=== PATIENT | female | born 1950 | race Two or more races ===

== ENCOUNTER → 2024-06-24 | Outpatient (CLI) | payer MEDICARE, MEDICAID, SELFPAY ==
[2024-06-24 11:53] LABS: Alanine Aminotransferase 17 U/L (10-49); Albumin/Globulin Ratio 1.4 (1.2-2.2); Alkaline Phosphatase 132 U/L (46-116); Anion Gap 7 (7-16); Aspartate Amino Transferase 17 U/L (0-34); BUN/Creatinine Ratio 26 Ratio (12-20); Bilirubin,Total 0.4 mg/dL (0.3-1.2); Blood Urea Nitrogen 23 mg/dL (9-23); Calcium 9.9 mg/dL (8.3-10.6); Calcium (Corrected) 9.9 mg/dL (8.5-10.1); Carbon Dioxide 31.7 mMol/L (20.0-31.0); Cardiac Risk Estimate 2.6 RATIO (3.7-5.6); Chloride 101 mMol/L (98-107); Cholesterol 135 mg/dL (132-200); Creatinine (Component) 0.9 mg/dL (0.6-1.3); Globulin 2.9 gm/dL (2.3-3.5); Glucose 180 mg/dL (74-106); HDL Cholesterol 52 mg/dL (40-60); LDL Cholesterol,Calculated 58 mg/dL (0-130); Osmolality,Calculated 288 (275-295); Potassium 4.6 mMol/L (3.4-5.1); Sodium 140 mMol/L (136-145); Total Protein 6.9 gm/dL (5.7-8.2); Triglycerides 126 mg/dL (30-150); eGFR > 60 See Note
[2024-06-24 12:12] LABS: Glucose Estimated Average 163 mg/dL (80-131); Hemoglobin A1C 7.3 % Hgb (4.8-6.0)
== END | disposition home or self-care (01) ==
LOC: COPL 09:23
PROVIDERS: PCP Family Medicine; Referring Provider Physician Assistant; Visit Provider Physician Assistant
DX: E78.5 Hyperlipidemia, unspecified (principal); I10 Essential (primary) hypertension; E11.9 Type 2 diabetes mellitus without complications
CPT/HCPCS: 36415; 80053; 80061; 83036

== ENCOUNTER → 2024-09-16 | Outpatient (CLI) | payer MEDICARE, MEDICAID, SELFPAY ==
[2024-09-16 09:46] LABS: Alanine Aminotransferase 21 U/L (10-49); Albumin, Serum 4.2 gm/dL (3.4-4.8); Albumin/Globulin Ratio 1.4 (1.2-2.2); Alkaline Phosphatase 144 U/L (46-116); Anion Gap 7 (7-16); Aspartate Amino Transferase 21 U/L (0-34); BUN/Creatinine Ratio 19 Ratio (12-20); Bilirubin,Total 0.5 mg/dL (0.3-1.2); Blood Urea Nitrogen 15 mg/dL (9-23); Carbon Dioxide 31.6 mMol/L (20.0-31.0); Cardiac Risk Estimate 3.8 RATIO (3.7-5.6); Chloride 103 mMol/L (98-107); Cholesterol 177 mg/dL (132-200); Creatinine (Component) 0.8 mg/dL (0.6-1.3); Globulin 3.1 gm/dL (2.3-3.5); Glucose 197 mg/dL (74-106); HDL Cholesterol 46 mg/dL (40-60); LDL Cholesterol,Calculated 100 mg/dL (0-130); Osmolality,Calculated 288 (275-295); Potassium 4.3 mMol/L (3.4-5.1); Sodium 142 mMol/L (136-145); Total Protein 7.3 gm/dL (5.7-8.2); Triglycerides 153 mg/dL (30-150); eGFR > 60 See Note
[2024-09-16 10:08] LABS: Glucose Estimated Average 197 mg/dL (80-131); Hemoglobin A1C 8.5 % Hgb (4.8-6.0)
== END | disposition home or self-care (01) ==
LOC: COPL 08:06
PROVIDERS: PCP Family Medicine; Referring Provider Physician Assistant; Visit Provider Physician Assistant
DX: E11.9 Type 2 diabetes mellitus without complications (principal); E78.5 Hyperlipidemia, unspecified; I10 Essential (primary) hypertension
CPT/HCPCS: 36415; 80053; 80061; 83036

== ENCOUNTER → 2024-12-04 | Outpatient (CLI) | payer MEDICARE, MEDICAID, SELFPAY ==
--- NOTE | 2024-12-04 11:30 | XR_ITS ---
Examination: Screening digital mammography, bilateral Computer aided detection 3-D breast Tomosynthesis, bilateral Date and time of exam: December 14, 2024 1129 hours Compared to mammograms dating to June 18, 2020 Indication: Screening Technique: Nonmagnified MLO, CC views of the breasts to been obtained, reconstructed from 3-D Tomosynthesis images. R2 computer aided detection program utilized for evaluation of suspicious masses and/or abnormal calcifications. 3-D Tomosynthesis images obtained. Findings: Scattered areas of fibroglandular density. Breast biopsy marker 12:00 position left breast and upper outer left breast Benign calcifications No interval suspicious masses Impression: BI-RADS category II: Benign Findings. Recommend 1 year follow-up mammogram.
== END | disposition home or self-care (01) ==
LOC: CDIM 11:13
PROVIDERS: Referring Provider Physician Assistant; Visit Provider Physician Assistant
DX: Z12.31 Encounter for screening mammogram for malignant neoplasm of breast (principal); R92.1 Mammographic calcification found on diagnostic imaging of breast; R92.323 Mammographic fibroglandular density, bilateral breasts
CPT/HCPCS: 77063; 77067

== ENCOUNTER → 2024-12-30 | Outpatient (CLI) | payer MEDICARE, MEDICAID, SELFPAY ==
[2024-12-30 10:43] LABS: Collection Type, Urine Clean Catch
[2024-12-30 11:15] LABS: Basophils # (Auto) 0.1 Thou/mm3 (0.0-0.2); Basophils % (Auto) 1 % (0-2.5); Eosinophils # (Auto) 0.1 Thou/mm3 (0.0-0.5); Eosinophils % (Auto) 1 % (0-10); Hematocrit 43.2 % (36.0-46.0); Hemoglobin 14.0 g/dL (12.0-16.0); Immature Granulocytes Auto 0.02 Thou/mm3 (0.00-0.00); Lymphocytes # (Auto) 2.6 Thou/mm3 (1.0-4.8); Lymphocytes % (Auto) 33 % (10-50); Mean Corpuscular HGB Conc 32.4 g/dl (31.0-37.0); Mean Corpuscular Hemoglobin 29.7 pg (25.0-35.0); Mean Corpuscular Volume 92 fL (80-100); Monocytes # (Auto) 0.5 Thou/mm3 (0.0-0.8); Monocytes % (Auto) 7 % (0-12); Neutrophils # (Auto) 4.6 Thou/mm3 (1.8-7.7); Neutrophils % (Auto) 59 % (37-80); Nucleated Red Blood Cell # 0.00 Thou/mm3 (0.00-0.00); Nucleated Red Blood Cell % 0 /100 WBC (0); Platelet Count 227 Thou/mm3 (140-440); RDW Standard Deviation 45.0 fL (36.4-46.3); Red Blood Count 4.71 Miln/mm3 (4.00-5.20); White Blood Count 7.9 Thou/mm3 (3.6-11.0)
[2024-12-30 11:26] LABS: Alanine Aminotransferase 19 U/L (10-49); Albumin, Serum 4.3 gm/dL (3.4-4.8); Albumin/Globulin Ratio 1.5 (1.2-2.2); Alkaline Phosphatase 135 U/L (46-116); Anion Gap 12 (7-16); Aspartate Amino Transferase 25 U/L (0-34); BUN/Creatinine Ratio 15 Ratio (12-20); Bilirubin,Total 0.5 mg/dL (0.3-1.2); Blood Urea Nitrogen 12 mg/dL (9-23); Calcium 9.8 mg/dL (8.3-10.6); Calcium (Corrected) 9.8 mg/dL (8.5-10.1); Carbon Dioxide 27.6 mMol/L (20.0-31.0); Cardiac Risk Estimate 2.9 RATIO (3.7-5.6); Chloride 103 mMol/L (98-107); Cholesterol 132 mg/dL (132-200); Creatinine (Component) 0.8 mg/dL (0.6-1.3); Globulin 2.8 gm/dL (2.3-3.5); Glucose 162 mg/dL (74-106); HDL Cholesterol 46 mg/dL (40-60); LDL Cholesterol,Calculated 62 mg/dL (0-130); Osmolality,Calculated 288 (275-295); Potassium 3.8 mMol/L (3.4-5.1); Sodium 143 mMol/L (136-145); Thyroid Stimulating Hormone 2.01 uIU/mL (0.55-4.78); Total Protein 7.1 gm/dL (5.7-8.2); Triglycerides 118 mg/dL (30-150); eGFR > 60 See Note
[2024-12-30 11:46] LABS: Bacteria,Urine Rare; Bilirubin,Urine Negative (Negative); Blood,Urine Negative (Negative); Budding Yeast,Urine Present; Clarity,Urine Clear (Clear/Hazy); Color,Urine Lt-Yellow (Lt Yel-Yel); Culture Indicated,Urine Not Indicated; Glucose, Urine 4+ (Negative); Ketones,Urine 1+ (Negative); Leukocyte Esterase,Urine Negative (Negative); Nitrite,Urine Negative (Negative); PH,Urine 5.5 (5.0-7.0); Protein,Urine Negative (Neg - Trace); RBC,Urine 2 /hpf (0-3); Specific Gravity,Urine 1.034 (1.001-1.035); Squamous Epithelial Cell,Urine 4 /hpf (0-5); Transitional Epi Cells,Urine < 1 /hpf (0-5); Urobilinogen,Urine Negative mg/dL (0.0-1.0); WBC,Urine 3 /hpf (0-5)
[2024-12-30 11:51] LABS: Creatinine MALB Rnd Ur 58 mg/dL (30-125); Microalbumin Creat Ratio 10 mg/gCrea (<30); Microalbumin, Random Urine 6 mg/L (0-300)
[2024-12-30 11:57] LABS: Glucose Estimated Average 177 mg/dL (80-131); Hemoglobin A1C 7.8 % Hgb (4.8-6.0)
[2024-12-30 11:59] LABS: Vitamin B12 718 pg/mL (211-911); Vitamin D 25 Hydroxy Total 36.8 ng/mL (7.3-40.2)
[2025-01-03 06:30] LABS: Fecal Globin Result NOT DETECTED (NOT DETECTED)
== END | disposition home or self-care (01) ==
LOC: COPL 09:47
PROVIDERS: PCP Physician Assistant; Referring Provider Physician Assistant; Visit Provider Physician Assistant
DX: Z00.00 Encounter for general adult medical examination without abnormal findings (principal); I10 Essential (primary) hypertension; E11.65 Type 2 diabetes mellitus with hyperglycemia; E55.9 Vitamin D deficiency, unspecified
CPT/HCPCS: 36415; 80053; 80061; 81001; 82043; 82274; 82306; 82570; 82607; 83036; 84443; 85025; G0328

== ENCOUNTER 2025-01-06 09:25 | Outpatient (AMB) | payer MEDICARE, SELFPAY ==
--- NOTE | 2025-01-06 09:47 | GYNCLNT_ITS ---
Vital Signs 01/06/25 09:48 Height 1.57 m Height Method Stated Weight 83.971 kg Weight Measurement Method Standing Scale BMI 33.8 BP 156/72 H Blood Pressure Source Automatic Cuff Blood Pressure Location Right Upper Arm Position Sitting Respiration 17 Pulse 80 Pulse Source Monitor Temp 97.4 F Temp Source Temporal Artery Scan Pulse Oximetry (%) 94 L Oxygen Delivery Method Room Air Allergies/Home Meds Allergies & Medications Allergies No Known Allergies Allergy (Verified 01/06/25 09:49) Medication Reconciliation liraglutide 0.6 mg/0.1 mL (18 mg/3 mL) subcutaneous pen injector (Victoza 3-Adiel) 1.8 mg subcut QDAY 03/04/21 [History Confirmed 01/06/25] empagliflozin 10 mg tablet (Jardiance) 10 mg PO QDAY 11/28/22 [History Confirmed 01/06/25] Held on 01/13/24. Instructions: Resume on 02/16/24. F/up with PCP to check for restart date. hydrochlorothiazide 25 mg tablet 25 mg PO QDAY 11/28/22 [History Confirmed 01/06/25] metformin 1,000 mg tablet 1,000 mg PO BID 11/28/22 [History Confirmed 01/06/25] atorvastatin 80 mg tablet 80 mg PO QPM #30 tabs 11/30/22 [Rx Confirmed 01/06/25] amlodipine 2.5 mg tablet 2.5 mg PO QDAY 01/11/24 [History Confirmed 01/06/25] clopidogrel 75 mg tablet 75 mg PO QDAY 01/11/24 [History Confirmed 01/06/25] duloxetine 30 mg capsule,delayed release 30 mg PO QDAY 01/11/24 [History Confirmed 01/06/25] insulin aspart U-100 100 unit/mL (3 mL) subcutaneous pen (Novolog FlexPen U-100 Insulin aspart) 20 unit subcut BID 01/11/24 [History Confirmed 01/06/25] losartan 100 mg tablet 100 mg PO QDAY 01/11/24 [History Confirmed 01/06/25] Intake Visit Data Collection New Patient or Established: Established Patient (seen at [facility] within 3 years) Reason for Visit:: REFERRAL Seen by Clinical Staff ONLY (RN/MA): No Encyclopedia Research Worker Required: No Do You Feel Safe at Home: Yes Authorities Contacted: N/A PCP or OBGYN visit in last 3 months: No Hx Now: No Are you currently on any form of Control: No Pain Present Currently: No Pain Scale Used: Pillai-Garcia/Numerical Pain scale:: 0 Smoking Status Smoking Status: Never smoker 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 1. Little interest or pleasure in doing things: not at all 2. Feeling down, depressed, or hopeless: not at all Total score: 0 PHQ-9 3. Trouble falling or staying asleep, or sleeping too much: Not at all 4. Feeling tired or having little energy: Not at all 5. Poor appetite or overeating: Not at all 6. Feeling bad about yourself - or that you are a failure or have let yourself or your family down: Not at all 7. Trouble concentrating on things, such as reading the newspaper or watching television: Not at all 8. Moving or speaking so slowly that other people could have noticed? - Or the opposite - being so fidgety or restless that you have been moving around a lot more than usual: not at all 9. Thoughts that you would be better off or of hurting yourself in some way: Not at all Total score: 0 If you checked off any problems, how difficult have these problems made it for you to do your work, take care of things at home, or get along with other people?: not difficult at all Source: Developed by Drs. Mark Burger, Mckenzie Flanagan, Wilbert Canseco and colleagues, with an educational naya from [employer]. Depression screen completed yes Social History Living Situation History Marital Status: Lives With: Family Housing: House Tobacco History Smoking Status: Never smoker Second Hand Smoke Exposure: No Alcohol History Alcohol Intake: Never Domestic Abuse History Do You Feel Safe at Home: Yes Office Procedures OB Clinic LOC & Office Proc's Nursing/Assessment Patient Status: Established Patient OB Clinic Nursing Assessment: Medication Reconciliation, Update PMH in EMR and Vital Signs OB Clinic Coordination of Care: Complex Care and Chronic Disease 1-5, Consent,records obtained, informed consent, Education Simp Pt/Fam, Lab and Imaging orders and Staff clarify orders Established Patient Charge Established Patient Point Assignment: 100 Established Patient Point Charge: EP Level 3 (80-115) Assessment & Plan Diagnosis / Problem List (1) Mass of left ovary: Status: Acute
[2025-01-06 09:48] VITALS: BP 156/72; PULSE 80; RESP 17; TEMP 36.3; O2SAT 94; BMI 33.8
== END 2025-01-06 10:23 | disposition home or self-care (01) ==
PROVIDERS: Supervising Provider Obstetrics & Gynecology; Visit Provider Obstetrics & Gynecology
DX: N83.8 Other noninflammatory disorders of ovary, fallopian tube and broad ligament (principal); E11.9 Type 2 diabetes mellitus without complications; I10 Essential (primary) hypertension; Z79.4 Long term (current) use of insulin; Z79.84 Long term (current) use of oral hypoglycemic drugs; Z79.85 Long-term (current) use of injectable non-insulin antidiabetic drugs; Z79.02 Long term (current) use of antithrombotics/antiplatelets; Z79.899 Other long term (current) drug therapy
CPT/HCPCS: 99213; G0463

== ENCOUNTER → 2025-01-23 | Outpatient (CLI) | payer MEDICARE, SELFPAY ==
--- NOTE | 2025-01-23 13:40 | XR_ITS ---
Examination: Lumbar spine, 5 views Technique: Lumbar spine AP, lateral, coned lateral lower lumbar spine, bilateral obliques 5 views Exam date and time: January 23, 2025 1514 hours INDICATIONS: Low back pain beginning 2 years ago FINDINGS: Adequate alignment lumbar vertebral bodies on the lateral view Mineralization of the anterior longitudinal ligament Moderate lumbar spondylosis No lumbar fracture. No significant lumbar disc narrowing No spondylolisthesis L5 films demonstrate diffuse advanced facet arthropathy IMPRESSION: No lumbar fracture Diffuse advanced facet arthropathy Moderate lumbar spondylosis No significant lumbar disc narrowing
[2025-01-23 14:35] LABS: Alanine Aminotransferase 17 U/L (10-49); Albumin, Serum 4.2 gm/dL (3.4-4.8); Albumin/Globulin Ratio 1.6 (1.2-2.2); Alkaline Phosphatase 145 U/L (46-116); Anion Gap 9 (7-16); Aspartate Amino Transferase 17 U/L (0-34); BUN/Creatinine Ratio 23 Ratio (12-20); Bilirubin,Total 0.5 mg/dL (0.3-1.2); Blood Urea Nitrogen 18 mg/dL (9-23); Calcium 10.5 mg/dL (8.3-10.6); Calcium (Corrected) 10.5 mg/dL (8.5-10.1); Carbon Dioxide 31.3 mMol/L (20.0-31.0); Chloride 103 mMol/L (98-107); Creatinine (Component) 0.8 mg/dL (0.6-1.3); Globulin 2.7 gm/dL (2.3-3.5); Glucose 160 mg/dL (74-106); Osmolality,Calculated 289 (275-295); Potassium 4.0 mMol/L (3.4-5.1); Sodium 143 mMol/L (136-145); Total Protein 6.9 gm/dL (5.7-8.2); eGFR > 60 See Note
[2025-01-23 14:52] LABS: CA 125 7.0 U/mL (<30.2)
== END | disposition home or self-care (01) ==
PROVIDERS: PCP Physician Assistant; Referring Provider Obstetrics & Gynecology; Visit Provider Obstetrics & Gynecology
DX: M47.896 Other spondylosis, lumbar region (principal); M47.816 Spondylosis without myelopathy or radiculopathy, lumbar region; N83.8 Other noninflammatory disorders of ovary, fallopian tube and broad ligament
CPT/HCPCS: 36415; 72110; 80053; 86304

== ENCOUNTER → 2025-02-18 | Outpatient (CLI) | payer MEDICARE, MEDICAID, SELFPAY ==
[2025-02-18 14:15] LABS: Alanine Aminotransferase 12 U/L (10-49); Albumin, Serum 4.2 gm/dL (3.4-4.8); Albumin/Globulin Ratio 1.5 (1.2-2.2); Alkaline Phosphatase 116 U/L (46-116); Anion Gap 9 (7-16); Aspartate Amino Transferase 17 U/L (0-34); BUN/Creatinine Ratio 14 Ratio (12-20); Bilirubin,Total 0.3 mg/dL (0.3-1.2); Blood Urea Nitrogen 11 mg/dL (9-23); Calcium 10.0 mg/dL (8.3-10.6); Calcium (Corrected) 10.0 mg/dL (8.5-10.1); Carbon Dioxide 31.2 mMol/L (20.0-31.0); Chloride 103 mMol/L (98-107); Creatinine (Component) 0.8 mg/dL (0.6-1.3); Globulin 2.8 gm/dL (2.3-3.5); Glucose 181 mg/dL (74-106); Osmolality,Calculated 289 (275-295); Potassium 3.9 mMol/L (3.4-5.1); Sodium 143 mMol/L (136-145); Total Protein 7.0 gm/dL (5.7-8.2); eGFR > 60 See Note
== END | disposition home or self-care (01) ==
LOC: COPL 12:25
PROVIDERS: PCP Family Medicine; Referring Provider Obstetrics & Gynecology; Visit Provider Obstetrics & Gynecology
DX: N83.8 Other noninflammatory disorders of ovary, fallopian tube and broad ligament (principal)
CPT/HCPCS: 36415; 80053

== ENCOUNTER → 2025-02-27 | Outpatient (CLI) | payer MEDICARE, MEDICAID, SELFPAY ==
--- NOTE | 2025-02-27 14:18 | XR_ITS ---
Examination: CT abdomen with intravenous contrast CT pelvis with intravenous contrast 2-D coronal reconstructions 2-D sagittal reconstructions Date and time of exam:February 27, 2025, 1520 hours, comparison January 14, 2024: History mild left hydronephrosis, pelvic sonogram January 14, 2024 no discrete pelvic mass, fat-containing left adnexal dermoid tumor 3.[address] pelvis January 12, 2024. CTDI: vol (mGy) 10.3 DLP: (mGycm) 578 Technique: Multiple axial sections of the abdomen and pelvis have been obtained. 64 slice high-resolution scanner used. 3 mm axial sections have been obtained, post intravenous injection 60 cc [id number] 2-D sagittal coronal reconstructions Low dose protocols, automated exposure control FINDINGS: There are no focal liver or splenic lesions Gallbladder not visualized No pancreatic mass No renal or ureteral calculi, no hydronephrosis Aorta normal size No pericecal inflammatory change No bowel obstruction No diverticulitis 35 x 32 mm fat-containing left ovarian mass No pelvic lymphadenopathy Atrophic uterus IMPRESSION: 35 x 32 mm fat-containing left ovarian mass, dermoid tumor
== END | disposition home or self-care (01) ==
PROVIDERS: PCP Physician Assistant; Referring Provider Obstetrics & Gynecology; Visit Provider Obstetrics & Gynecology
DX: N83.8 Other noninflammatory disorders of ovary, fallopian tube and broad ligament (principal)
CPT/HCPCS: 74177; A4649; Q9967

== ENCOUNTER 2025-03-20 14:44 | Outpatient (AMB) | payer MEDICARE, MEDICAID, SELFPAY ==
--- NOTE | 2025-03-20 14:55 | GYNCLNT_ITS ---
Vital Signs 03/20/25 14:55 Height 1.57 m Height Method Stated Allergies/Home Meds Allergies & Medications Allergies No Known Allergies Allergy (Verified 03/20/25 14:55) Medication Reconciliation liraglutide 0.6 mg/0.1 mL (18 mg/3 mL) subcutaneous pen injector (Victoza 3-Adiel) 1.8 mg subcut QDAY 03/04/21 [History Confirmed 03/20/25] empagliflozin 10 mg tablet (Jardiance) 10 mg PO QDAY 11/28/22 [History Confirmed 03/20/25] Held on 01/13/24. Instructions: Resume on 02/16/24. F/up with PCP to check for restart date. hydrochlorothiazide 25 mg tablet 25 mg PO QDAY 11/28/22 [History Confirmed 03/20/25] metformin 1,000 mg tablet 1,000 mg PO BID 11/28/22 [History Confirmed 03/20/25] atorvastatin 80 mg tablet 80 mg PO QPM #30 tabs 11/30/22 [Rx Confirmed 03/20/25] amlodipine 2.5 mg tablet 2.5 mg PO QDAY 01/11/24 [History Confirmed 03/20/25] clopidogrel 75 mg tablet 75 mg PO QDAY 01/11/24 [History Confirmed 03/20/25] duloxetine 30 mg capsule,delayed release 30 mg PO QDAY 01/11/24 [History Confirmed 03/20/25] insulin aspart U-100 100 unit/mL (3 mL) subcutaneous pen (Novolog FlexPen U-100 Insulin aspart) 20 unit subcut BID 01/11/24 [History Confirmed 03/20/25] losartan 100 mg tablet 100 mg PO QDAY 01/11/24 [History Confirmed 03/20/25] Intake Visit Data Collection New Patient or Established: Established Patient (seen at [facility] within 3 years) Reason for Visit:: DISCUSS CT SCAN AND LAB RESULTS Consent obtained for Telemed Visit: Yes Seen by Clinical Staff ONLY (RN/MA): No Buffing 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 Required: Yes Buffing Wheel Raker's name/title: HARMAN ESPARZA Do You Feel Safe at Home: Yes Authorities Contacted: N/A PCP or OBGYN visit in last 3 months: Yes Hx Now: No Are you currently on any form of Control: No Pain Present Currently: No Pain Scale Used: Pillai-Garcia/Numerical Pain scale:: 0 Smoking Status Smoking Status: Never smoker Immunizations Flu Vaccine in the Last 12 Months: Yes Date of most recent flu vaccination: 03/13/25 Flu Vaccine Exclusion Criteria: Already Received For Telemed visit only Telemed Video/Phone Visit: Yes Verbal consent obtained for Telemed visit?: Yes Verbal Consent witness name: HARMAN ESPARZA 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 Menopausal: Yes Currently sexually active: No If not currently sexually active, have you ever been sexually active: Yes 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 1. Little interest or pleasure in doing things: not at all 2. Feeling down, depressed, or hopeless: not at all Total score: 0 PHQ-9 3. Trouble falling or staying asleep, or sleeping too much: Not at all 4. Feeling tired or having little energy: Not at all 5. Poor appetite or overeating: Not at all 6. Feeling bad about yourself - or that you are a failure or have let yourself or your family down: Not at all 7. Trouble concentrating on things, such as reading the newspaper or watching television: Not at all 8. Moving or speaking so slowly that other people could have noticed? - Or the opposite - being so fidgety or restless that you have been moving around a lot more than usual: not at all 9. Thoughts that you would be better off or of hurting yourself in some way: Not at all Total score: 0 Source: Developed by Drs. Mark Burger, Mckenzie Flanagan, Wilbert Canseco and colleagues, with an educational naya from [employer]. Depression screen completed yes Social History Living Situation History Lives With: Family Housing: House Tobacco History Smoking Status: Never smoker Second Hand Smoke Exposure: No Alcohol History Alcohol Intake: Never Domestic Abuse History Do You Feel Safe at Home: Yes History of Present Illness HPI Narrative Vivienne Randolph is a 74-year-old postmenopausal female presenting for follow-up regarding an incidentally noted 4-centimeter dermoid cyst. The patient is being seen to review recent imaging and laboratory results related to this finding. 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 Exam General General Appearance: alert, in no apparent distress and healthy appearing Head Head exam: atraumatic Neck Neck exam: Present normal inspection and trachea midline Chest Chest inspection: Present normal inspection and symmetric chest wall rise External exam: Present normal external exam; Absent tenderness Neuro Neurological exam: Present oriented X3 Psych Psychiatric exam: Present normal affect and normal mood Office Procedures OBC Clinic LOC & Office Proc's Nursing/Assessment Patient Status: Established Patient OB Clinic Nursing Assessment: Medication Reconciliation and Update PMH in EMR OB Clinic Coordination of Care: Complex Care and Chronic Disease 1-5, Consent,records obtained, informed consent, Education Simp Pt/Fam, Results/Orders obtained and Staff clarify orders Established Patient Charge Established Patient Point Assignment: 75 Telehealth If patient is seen using Teleconference methods, complete New/Est section, but DO NOT karlo points only karlo the correct Telemed visit type Telemed Phone/Video with patient at home & Dr,PA,ARTIFICIAL 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 - CT scan shows the cyst is actually smaller than initially measured on ultrasound, which is reassuring. - Tumor markers including CA-125 are negative at 7.0, indicating no malignant risk. - Patient is postmenopausal at age 74. Plan: - Repeat ultrasound or CT scan in one year. - Results will be faxed to Dr. Pfeiffer's office. Advanced Care Planning Advance care planning discussed with:: patient
== END 2025-03-20 15:25 | disposition home or self-care (01) ==
LOC: HODSOBC 14:44
PROVIDERS: PCP Physician Assistant; Referring Provider Physician Assistant; Supervising Provider Obstetrics & Gynecology; Visit Provider Obstetrics & Gynecology
DX: D27.1 Benign neoplasm of left ovary (principal); I10 Essential (primary) hypertension; E11.9 Type 2 diabetes mellitus without complications; Z79.4 Long term (current) use of insulin; Z79.84 Long term (current) use of oral hypoglycemic drugs; Z79.899 Other long term (current) drug therapy
CPT/HCPCS: 99212; G0463

== ENCOUNTER → 2025-03-26 | Outpatient (CLI) | payer MEDICARE, MEDICAID, SELFPAY ==
--- NOTE | 2025-03-26 12:30 | XR_ITS ---
Examination: MRI lumbar spine without contrast Date and time of exam: March 26, 2025, 1338 hours INDICATIONS: Low back pain beginning 2 years ago numbness in the left lower leg Technique: Multiple MRI axial and sagittal sections lumbar spine. Sagittal T2-weighted images, TR 3500, TE 118 T1 weighted transverse sections, TR 688 T8.5, T2-weighted sagittal sections T1 weighted sagittal sections TR 621, TE 30 T2 axial sections, TR 4, 190, TE 84. Findings: Adequate alignment lumbar vertebral bodies No lumbar fracture Diffuse lumbar disc desiccation No spondylolisthesis L5-S1 2 mm central lumbar disc bulge contiguous with the right S1 nerve root, 6 mm left foraminal disc bulge with moderate left L5 ganglionic compression L4-L5 no disc protrusion L3-L4 small foraminal disc bulges no ganglionic compression L2-L3 no disc protrusion L1-L2 no disc protrusion IMPRESSION: L5-S1 2 mm central lumbar disc bulge contiguous with the right S1 nerve root, 6 mm left foraminal disc bulge with moderate left L5 ganglionic compression
== END | disposition home or self-care (01) ==
PROVIDERS: PCP Physician Assistant; Referring Provider Physician Assistant; Visit Provider Physician Assistant
DX: M51.370 Other intervertebral disc degeneration, lumbosacral region with discogenic back pain only (principal); G95.20 Unspecified cord compression
CPT/HCPCS: 72148

== ENCOUNTER → 2025-04-03 | Outpatient (CLI) | payer MEDICARE, MEDICAID, SELFPAY ==
[2025-04-03 10:57] LABS: Glucose Estimated Average 171 mg/dL (80-131); Hemoglobin A1C 7.6 % Hgb (4.8-6.0)
[2025-04-03 11:03] LABS: Alanine Aminotransferase 17 U/L (10-49); Albumin, Serum 4.4 gm/dL (3.4-4.8); Albumin/Globulin Ratio 1.7 (1.2-2.2); Alkaline Phosphatase 108 U/L (46-116); Anion Gap 9 (7-16); Aspartate Amino Transferase 21 U/L (0-34); BUN/Creatinine Ratio 14 Ratio (12-20); Bilirubin,Total 0.6 mg/dL (0.3-1.2); Blood Urea Nitrogen 11 mg/dL (9-23); Calcium 9.3 mg/dL (8.3-10.6); Calcium (Corrected) 9.3 mg/dL (8.5-10.1); Carbon Dioxide 29.6 mMol/L (20.0-31.0); Cardiac Risk Estimate 2.6 RATIO (3.7-5.6); Chloride 103 mMol/L (98-107); Cholesterol 126 mg/dL (132-200); Creatinine (Component) 0.8 mg/dL (0.6-1.3); Globulin 2.6 gm/dL (2.3-3.5); Glucose 175 mg/dL (74-106); HDL Cholesterol 49 mg/dL (40-60); LDL Cholesterol,Calculated 51 mg/dL (0-130); Osmolality,Calculated 286 (275-295); Potassium 4.2 mMol/L (3.4-5.1); Sodium 142 mMol/L (136-145); Total Protein 7.0 gm/dL (5.7-8.2); Triglycerides 130 mg/dL (30-150); eGFR > 60 See Note
== END | disposition home or self-care (01) ==
LOC: COPL 09:04
PROVIDERS: PCP Physician Assistant; Referring Provider Physician Assistant; Visit Provider Physician Assistant
DX: E11.65 Type 2 diabetes mellitus with hyperglycemia (principal); E78.5 Hyperlipidemia, unspecified; I10 Essential (primary) hypertension
CPT/HCPCS: 36415; 80053; 80061; 83036